=== PATIENT | female | born 1995 | race Caucasian/White ===

== ENCOUNTER 2019-04-24 11:04 | Outpatient (CLI) | payer SELFPAY ==
[2019-04-24 13:40] LABS: RHOGAM PROFILE 1 1
== END 2019-04-24 14:10 | disposition home or self-care (01) ==
LOC: OBT 11:04 → L-D 11:04 → OBT 14:10
DX: Z36.2 Encounter for other antenatal screening follow-up (principal); Z3A.29 29 weeks gestation of pregnancy
CPT/HCPCS: 76818; 86850; 86885; 86900; 86901

== ENCOUNTER 2019-06-18 10:15 | Outpatient (CLI) | payer MEDICAID ==
[2019-06-18] MEDS: LACTATED RINGER'S 1,000 ML IV (11:04)
[2019-06-18 11:36] LABS: ADD MAN DIFF? NO
[2019-06-18 11:40] LABS: BASOPHILS % 0.3 % (0.0-2.0); EOSINOPHILS # 0.1 10^3/ul (0.0-0.5); HEMOGLOBIN 11.2 g/dl (12.0-16.0); LYMPHOCYTES # 1.3 10^3/ul (0.8-2.9); LYMPHOCYTES % 22.3 % (15.0-51.0); MEAN CORPUSCULAR HEMOGLOBIN 28.6 pg (29.0-33.0); MEAN CORPUSCULAR HGB CONC 32.9 g/dl (32.0-37.0); MEAN PLATELET VOLUME 11.8 fl (7.4-10.4); MONOCYTE # 0.4 10^3/ul (0.3-0.9); MONOCYTES % 7.4 % (0.0-11.0); PLATELET COUNT 134 10^3/UL (140-415); RED BLOOD COUNT 3.91 10^6/ul (4.20-5.40)
[2019-06-18 11:40] LABS: WHITE BLOOD COUNT 5.8 10^3/ul (4.8-10.8)
[2019-06-18 11:44] LABS: ADD UMIC NO; UR ASCORBIC ACID 40 mg/dL (NEGATIVE); UR BACTERIA FEW /HPF (NONE SEEN); UR BILIRUBIN (Dip) NEGATIVE (NEGATIVE); UR BLOOD (Dip) NEGATIVE (NEGATIVE); UR CLARITY SLIGHTLY CLOUDY (CLEAR); UR COLOR YELLOW (YELLOW); UR GLUCOSE (Dip) NEGATIVE (NEGATIVE); UR KETONES (Dip) NEGATIVE (NEGATIVE); UR LEUKOCYTE ESTERASE (Dip) NEGATIVE Leu/ul (NEGATIVE); UR NITRITE (Dip) NEGATIVE (NEGATIVE); UR RBC 1 /HPF (0-5); UR SPECIFIC GRAVITY (Dip) 1.018 (1.003-1.030); UR SQUAMOUS EPITHELIAL CELL FEW /HPF (FEW); UR TOTAL PROTEIN (Dip) NEGATIVE (NEGATIVE); UR UROBILINOGEN (Dip) NEGATIVE (NEGATIVE); UR WBC 0 /HPF (0-5)
[2019-06-18 11:56] LABS: ALANINE AMINOTRANSFERASE 13 IU/L (13-69); ALBUMIN 3.7 g/dl (3.3-4.9); ALBUMIN/GLOBULIN RATIO 1.15; ALKALINE PHOSPHATASE 97 IU/L (42-121); ANION GAP 8 (5-13); ASPARTATE AMINO TRANSFERASE 17 IU/L (15-46); BILIRUBIN,INDIRECT 0.6 mg/dl (0-1.1); BILIRUBIN,TOTAL 0.6 mg/dl (0.2-1.3); BLOOD UREA NITROGEN 9 mg/dl (7-20); CALCIUM 9.5 mg/dl (8.4-10.2); CARBON DIOXIDE 25 mmol/L (21-31); CHLORIDE 103 mmol/L (97-110); CREATININE 0.52 mg/dl (0.44-1.00); Estimated GFR > 60 mL/min (>60); GLUCOSE 106 mg/dl (70-220); POTASSIUM 4.1 mmol/L (3.5-5.1); SODIUM 136 mmol/L (135-144); TOTAL PROTEIN 6.9 g/dl (6.1-8.1)
== END 2019-06-18 13:15 | disposition home or self-care (01) ==
LOC: OBT 10:15 → L-D 10:16 → OBT 13:15
DX: O26.893 Other specified pregnancy related conditions, third trimester (principal); Z3A.36 36 weeks gestation of pregnancy; E86.0 Dehydration
CPT/HCPCS: 36415; 76815; 76818; 80053; 81001; 81003; 85025; 87086; 96360

== ENCOUNTER 2019-06-20 13:49 | Outpatient (CLI) | payer MEDICAID | END 2019-06-20 17:11 | disposition home or self-care (01) | LOC: OBT 13:49 → L-D 13:50 → OBT 17:11 | DX: O36.8130 Decreased fetal movements, third trimester, not applicable or unspecified (principal); Z3A.36 36 weeks gestation of pregnancy | CPT/HCPCS: 76818 ==

== ENCOUNTER 2019-07-04 12:17 | Inpatient (IN) | payer MEDICAID ==
[2019-07-04] MEDS ORDERED: CARBOPROST 250 MCG INJ IM ×2 (12:30→21:00)
[2019-07-04] MEDS ORDERED: MISOPROSTOL 200 MCG TAB PR ×2 (12:30→21:00)
[2019-07-04] MEDS ORDERED: METHYLERGONOVINE 0.2 MG INJ IM ×2 (12:30→21:00)
[2019-07-04] MEDS ORDERED: OXYTOCIN 30 UNITS/LR 500 ML IV ×3 (12:30→21:00)
[2019-07-04 12:41] LABS: ADD MAN DIFF? NO
[2019-07-04 12:45] LABS: WHITE BLOOD COUNT 5.7 10^3/ul (4.8-10.8)
[2019-07-04 12:45] LABS: BASOPHILS % 0.3 % (0.0-2.0); EOSINOPHILS % 0.5 % (0.0-7.0); HEMATOCRIT 35.1 % (37.0-47.0); HEMOGLOBIN 11.3 g/dl (12.0-16.0); LYMPHOCYTES # 1.4 10^3/ul (0.8-2.9); LYMPHOCYTES % 24.1 % (15.0-51.0); MEAN CORPUSCULAR HGB CONC 32.2 g/dl (32.0-37.0); MEAN CORPUSCULAR VOLUME 86.9 fl (82.0-101.0); MEAN PLATELET VOLUME 11.4 fl (7.4-10.4); MONOCYTE # 0.5 10^3/ul (0.3-0.9); MONOCYTES % 9.1 % (0.0-11.0); NEUTROPHIL # 3.7 10^3/ul (1.6-7.5); PLATELET COUNT 142 10^3/UL (140-415); RED BLOOD COUNT 4.04 10^6/ul (4.20-5.40); RED CELL DISTRIBUTION WIDTH 13.2 % (11.5-14.5)
[2019-07-04 13:04] LABS: INR 0.84; PROTIME 11.6 Sec (11.9-14.9); PT RATIO 0.9
[2019-07-04 13:05] LABS: PARTIAL THROMBOPLASTIN TIME 25.4 Sec (23.0-35.0)
[2019-07-04 13:34] LABS: HEPATITIS B SURFACE ANTIGEN NEGATIVE (NEGATIVE)
[2019-07-04] MEDS: LACTATED RINGER'S 1,000 ML IV ×2 (15:54→17:36)
[2019-07-04 18:26] LABS: RAPID PLASMA REAGIN NONREACTIVE (NR)
[2019-07-04] MEDS ORDERED: morphine SULFATE/PF (10 MG/10 ML) INJ (19:07)
[2019-07-04] MEDS ORDERED: FENTAnyl 50 MCG/ML VIAL (19:07)
[2019-07-04] MEDS ORDERED: PHENYLephrine (100 MCG/ML) 10ML SYG (19:30)
[2019-07-04] MEDS ORDERED: ONDANSETRON 4 MG INJ (19:31)
[2019-07-04] MEDS ORDERED: OXYTOCIN 10 UNIT INJ (19:41)
[2019-07-04] MEDS ORDERED: ONDANSETRON 4 MG INJ IV (20:00)
[2019-07-04] MEDS ORDERED: NALOXONE (0.4 MG/ML) INJ IV (20:00)
[2019-07-04] MEDS ORDERED: morphine 2 MG INJ IV ×2 (20:00)
[2019-07-04] MEDS ORDERED: TRIMETHOBENZAMIDE 100 MG/ML VIAL IM (20:00)
[2019-07-04] MEDS ORDERED: METHYLERGONOVINE 0.2 MG TAB PO (21:00)
[2019-07-04] MEDS: SENNA/DOCUSATE NA (8.6MG/50MG) TAB PO (21:00)
[2019-07-04] MEDS: CEFAZOLIN 2 GM/50 ML (PMX) 50 ML IVPB (21:11)
[2019-07-04] MEDS: DIPHENHYDRAMINE 50 MG INJ IV (21:12)
[2019-07-04] MEDS: KETOROLAC 30 MG INJ IV (22:45)
[2019-07-04] MEDS ORDERED: DIPHENHYDRAMINE 50 MG INJ IV (23:00)
[2019-07-04] MEDS: OXYTOCIN 30 UNITS/LR 500 ML IV (23:17)
[2019-07-05] MEDS: NALBUPHINE HCL (10 MG/1 ML) INJ IV (02:07)
[2019-07-05 06:49] LABS: ADD MAN DIFF? NO
[2019-07-05 06:55] LABS: BASOPHILS % 0.3 % (0.0-2.0); EOSINOPHILS % 0.5 % (0.0-7.0); HEMATOCRIT 35.4 % (37.0-47.0); HEMOGLOBIN 11.4 g/dl (12.0-16.0); LYMPHOCYTES # 1.3 10^3/ul (0.8-2.9); LYMPHOCYTES % 16.1 % (15.0-51.0); MEAN CORPUSCULAR HEMOGLOBIN 27.5 pg (29.0-33.0); MEAN CORPUSCULAR HGB CONC 32.2 g/dl (32.0-37.0); MEAN CORPUSCULAR VOLUME 85.3 fl (82.0-101.0); MONOCYTE # 0.6 10^3/ul (0.3-0.9); MONOCYTES % 8.1 % (0.0-11.0); NEUTROPHIL # 5.9 10^3/ul (1.6-7.5); NEUTROPHILS % 74.5 % (39.0-77.0); PLATELET COUNT 118 10^3/UL (140-415); RED BLOOD COUNT 4.15 10^6/ul (4.20-5.40); RED CELL DISTRIBUTION WIDTH 13.2 % (11.5-14.5)
[2019-07-05 06:55] LABS: WHITE BLOOD COUNT 7.9 10^3/ul (4.8-10.8)
[2019-07-05 06:58] LABS: POSITIVE DIFF @See below
[2019-07-05 07:24] LABS: ANION GAP 29 (5-13); BLOOD UREA NITROGEN 7 mg/dl (7-20); CARBON DIOXIDE 27 mmol/L (21-31); CHLORIDE 103 mmol/L (97-110); CREATININE 0.52 mg/dl (0.44-1.00); Estimated GFR > 60 mL/min (>60); GLUCOSE 66 mg/dl (70-220); POTASSIUM 3.8 mmol/L (3.5-5.1); SODIUM 159 mmol/L (135-144)
[2019-07-05] MEDS: LACTATED RINGER'S 1,000 ML IV (08:52)
[2019-07-05] MEDS: KETOROLAC 30 MG INJ IV ×2 (09:02→16:45)
[2019-07-05] MEDS: SENNA/DOCUSATE NA (8.6MG/50MG) TAB PO ×2 (09:02→21:20)
[2019-07-05] MEDS ORDERED: IBUPROFEN 800 MG TAB PO (09:30)
[2019-07-05] MEDS ORDERED: HYDROCODONE/APAP (5/325) TAB PO (09:30)
[2019-07-05] MEDS: HYDROCODONE/APAP (5/325) TAB PO (21:20)
[2019-07-06] MEDS: HYDROCODONE/APAP (5/325) TAB PO ×5 (03:50→23:32)
[2019-07-06] MEDS: SENNA/DOCUSATE NA (8.6MG/50MG) TAB PO ×2 (09:26→20:45)
[2019-07-06] MEDS: LANOLIN HPA 1 PKT TOP (20:45)
[2019-07-06] MEDS: BISACODYL 10 MG SUPP PR (22:15)
[2019-07-06] MEDS: MAGNESIUM HYDROXIDE 30ML CUP PO (22:15)
[2019-07-07] MEDS: HYDROCODONE/APAP (5/325) TAB PO (05:12)
[2019-07-07 08:30] LABS: ADD MAN DIFF? NO
[2019-07-07 08:48] LABS: WHITE BLOOD COUNT 6.1 10^3/ul (4.8-10.8)
[2019-07-07 08:48] LABS: BASOPHILS % 0.5 % (0.0-2.0); EOSINOPHILS # 0.1 10^3/ul (0.0-0.5); EOSINOPHILS % 1.5 % (0.0-7.0); HEMATOCRIT 35.3 % (37.0-47.0); HEMOGLOBIN 11.1 g/dl (12.0-16.0); LYMPHOCYTES # 1.8 10^3/ul (0.8-2.9); MEAN CORPUSCULAR HEMOGLOBIN 27.8 pg (29.0-33.0); MEAN CORPUSCULAR HGB CONC 31.4 g/dl (32.0-37.0); MEAN CORPUSCULAR VOLUME 88.3 fl (82.0-101.0); MEAN PLATELET VOLUME 11.6 fl (7.4-10.4); MONOCYTE # 0.5 10^3/ul (0.3-0.9); MONOCYTES % 8.5 % (0.0-11.0); NEUTROPHIL # 3.7 10^3/ul (1.6-7.5); PLATELET COUNT 170 10^3/UL (140-415); RED CELL DISTRIBUTION WIDTH 13.2 % (11.5-14.5)
[2019-07-07] MEDS: DIPHTH/TET/ACEL PERTUSS (ADULT) 0.5 ML VIAL IM* (09:00)
[2019-07-07] MEDS: MEASLES,MUMPS,RUBELLA VACCINE INJ SC* (09:00)
[2019-07-07] MEDS: SENNA/DOCUSATE NA (8.6MG/50MG) TAB PO (09:33)
[2019-07-07] MEDS: ACETAMINOPHEN 500 MG TAB PO ×2 (10:14→15:49)
[2019-07-07] MEDS ORDERED: IBUPROFEN 800 MG TAB PO (23:00)
== END 2019-07-07 17:55 | disposition home or self-care (01) | DRG 788 ==
LOC: L-D 12:17 → PP1 23:31
PROVIDERS: Obstetrics & Gynecology
PROC: 10D00Z1 Extraction of Products of Conception, Low, Open Approach (ICD-10-PCS; principal; 2019-07-05)
PROC: 3E033VJ Introduction of Other Hormone into Peripheral Vein, Percutaneous Approach (ICD-10-PCS; 2019-07-05)
DX: O65.5 Obstructed labor due to abnormality of maternal pelvic organs (principal); O34.211 Maternal care for low transverse scar from previous cesarean delivery; Z3A.38 38 weeks gestation of pregnancy; Z37.0 Single live birth
CPT/HCPCS: 80048; 85025; 85610; 85730; 86592; 86850; 86870; 86900; 86901; 87340; 99464